=== PATIENT | female | born 1940 | race Hispanic/Latino ===

== ENCOUNTER 2017-04-18 11:03 | Inpatient (IN) | payer MEDICARE ==
[~2017-04-18] VITALS: Ht 160 cm; Wt 70.8 kg
--- NOTE | 2017-04-18 12:00 | Diagnostic Imaging Report ---
PROCEDURE: A single AP view of the chest. COMPARISON: None. INDICATIONS: POSSIBLE STROKE FINDINGS: Lines/tubes: None. Lungs: The lungs are well inflated and clear. There is no evidence of pneumonia or pulmonary edema. Pleura: There is no pleural effusion or pneumothorax. Heart and mediastinum: Mild cardiomegaly. Atherosclerotic calcifications in aorta. Mild main pulmonary artery enlargement. Bones: No acute bony abnormality. IMPRESSION: Mild cardiomegaly. No acute cardiopulmonary disease. Dictated by: Ender Elizondo M.D. on 04/18/2017 at 11:59 Electronically approved by: Ender Elizondo M.D. on 04/18/2017 at 11:59
[2017-04-18 12:16] LABS: BASOPHILS # (AUTO) 0.1 (0.0-0.1); BASOPHILS % 0.5 % (0.0-1.0); EOSINOPHILS # (AUTO) 0.1 (0.0-0.4); EOSINOPHILS % 0.5 % (0.0-6.0); HEMATOCRIT 41.4 % (34.2-44.1); HEMOGLOBIN 14.4 g/dL (12.0-16.0); LYMPHOCYTES # (AUTO) 2.9 (1.0-3.2); LYMPHOCYTES % 30.5 % (18.0-39.1); MEAN CORPUSCULAR HEMOGLOBIN 32.1 pg (28-32); MEAN CORPUSCULAR HGB CONC 34.8 g/dL (31-35); MEAN CORPUSCULAR VOLUME 92.2 fL (81-99); MONOCYTES # (AUTO) 0.5 (0.2-0.8); NEUTROPHILS # (AUTO) 5.9 (2.1-6.9); NEUTROPHILS % 63.3 % (38.7-80.0); PLATELET COUNT 314 x10e3/uL (140-360); RED BLOOD COUNT 4.49 x10e6/uL (3.6-5.1); RED CELL DISTRIBUTION WIDTH 13.8 % (11.7-14.4)
[2017-04-18 12:17] LABS: BILIRUBIN,URINE 1+ (NEGATIVE); KETONES,URINE NEGATIVE (NEGATIVE); LEUKOCYTE ESTERASE ,URINE TRACE (NEGATIVE); NITRITE,URINE NEGATIVE (NEGATIVE); URINE UROBILINOGEN 0.2 mg/dL (0.2 - 1)
[2017-04-18 12:18] LABS: CLARITY,URINE CLEAR (CLEAR); COLOR,URINE YELLOW (YELLOW); PROTEIN,URINE DIPSTICK 1+ (NEGATIVE)
[2017-04-18 12:26] LABS: BACTERIA,URINE FEW /HPF; EPITHELIAL CELLS,URINE FEW /LPF; MUCUS,URINE MANY (RARE); RBC,URINE 0-5 /HPF (0-5)
[2017-04-18 12:34] LABS: INR 1.18; PROTHROMBIN TIME 14.1 seconds (11.9-14.5)
[2017-04-18 12:35] LABS: PARTIAL THROMBOPLASTIN TIME 29.3 seconds (23.8-35.5)
[2017-04-18 12:41] LABS: ALANINE AMINOTRANSFERASE 12 IU/L (0-55); ALBUMIN 4.5 g/dL (3.5-5.0); ALKALINE PHOSPHATASE 75 IU/L (40-150); ANION GAP 15.1 mmol/L (8-16); BLOOD UREA NITROGEN 19 mg/dL (7-26); BUN/CREATININE RATIO 23 (6-25); CALCIUM 9.6 mg/dL (8.4-10.2); CARBON DIOXIDE 26 mmol/L (22-29); CHLORIDE 104 mmol/L (98-107); CREATINE KINASE 97 IU/L (29-168); CREATININE, SERUM 0.83 mg/dL (0.57-1.11); EST GLOMERULAR FILTRATION RATE > 60 ML/MIN (60-); GLUCOSE 101 mg/dL (74-118); POTASSIUM 4.1 mmol/L (3.5-5.1); SODIUM 141 mmol/L (136-145)
--- NOTE | 2017-04-18 12:54 | Diagnostic Imaging Report ---
Exam: Head CT without contrast History: Headache Comparison studies: None Technique: Axial images were obtained from the skull base to the vertex. Coronal and sagittal images reconstructed from the axial data. Intravenous contrast: None Findings: Scalp: No abnormalities. Bones: No fractures, blastic or lytic lesions. Brain sulci: Right lateral parietal and occipital sulci are effaced (see below. Remain sulci are mild prominent. Ventricles: The posterior right lateral ventricle is partially effaced. Mild to been stored dilatation remaining ventricles. No hydrocephalus. Extra-axial spaces: No masses, no fluid collection. Parenchyma: Wedge-shaped hypodensity compatible with recent, moderate size infarct centered in the right inferior parietal lobule extends anteriorly to the posterior right insula and right superior temporal lobe and posteriorly to the right lateral occipital lobe in the distal right MCA territory. Infarct extends to the right MCA and [employer] DEVELOPER cortical border zone. There is no abby hemorrhagic conversion at this time. There are a few linear hyperdense vessels within the infarct bed which may possibly reflect small thrombosed vessels within the distal right MCA territory. There is a small chronic lacunar infarct in the left anterolateral putamen. Scattered discrete and ill-defined ill-defined confluent hypodensities in the supratentorial white matter are nonspecific but most compatible with chronic small vessel ischemic changes. Sellar/suprasellar region: No abnormalities. Craniocervical junction: Patent foramen magnum. No Chiari one malformation. Incidental findings: Atherosclerotic calcifications in the carotid siphons, right intradural vertebral artery and proximal left A2 CASSANDRA segment. IMPRESSION: Recent (acute to early subacute), moderate size, nonhemorrhagic vascular insult in the distal right MCA territory extends to the right MCA-[employer] WE[employer] DEVELOPER cortical border zone with local mass effect without midline shift, herniation or hydrocephalus. Chronic findings: 1. Mild generalized volume loss. 2. Moderate chronic microvascular ischemic changes with small chronic left putaminal lacunar infarct. Findings discussed with Dr. Best at 12:46 PM on 04/18/2017. Signed by: Dr. Charles Martin M.D. on 04/18/2017 12:50 PM
[2017-04-18] MEDS ORDERED: NIFEDIPINE ER60 MG PO (13:00)
[2017-04-18] MEDS ORDERED: CHLORTHALIDONE25 MG PO (13:00)
[2017-04-18] MEDS ORDERED: WARFARIN SODIUM4 MG PO (13:00)
[2017-04-18] MEDS ORDERED: METOPROLOL SUCC50 MG PO (13:00)
[2017-04-18] MEDS ORDERED: ASPIRIN 325 MG TAB PO ONE (13:45)
[2017-04-18] MEDS ORDERED: ENOXAPARIN SOD INJ 60 MG/0.6 ML SYR SC SCH (13:45)
--- OUTSIDE RECORDS SUMMARY | 2017-04-18 13:48 | XMS REPORT ---
Author [facility] Address Unknown Phone Unavailable Care Team Providers Care Property Maintenance Supervisor Name Role Phone FLORES CARVALHO Unavailable Unavailable Problems This patient has no known problems. Allergies, Adverse Reactions, Alerts This patient has no known allergies or adverse reactions. Medications This patient has no known medications. Results Test Description Test Time Test Comments Text Results Atomic Results Result Comments CHEST SINGLE (PORTABLE) [place] [address] Patient Name: GUERO ATKINSON MR #: [id number] : 1940 Age/Sex: 76/F Req #: [id number] Adm Physician: Ordered by: FLORES CARVALHO MD Report #: [id number] Location: ER Room/Bed: Procedure: [id number] DX/CHEST SINGLE (PORTABLE) Exam Date: 04/18/17 Exam Time: 1145 REPORT STATUS: Signed PROCEDURE: A single AP view of the chest. COMPARISON: None. INDICATIONS: POSSIBLE STROKE FINDINGS: Lines/tubes: None. Lungs: The lungs are well inflated and clear. There is no evidence of pneumonia or pulmonary edema. Pleura: There is no pleural effusion or pneumothorax. Heart and mediastinum: Mild cardiomegaly. Atherosclerotic calcifications in aorta. Mild main pulmonary artery enlargement. Bones: No acute bony abnormality. IMPRESSION: Mild cardiomegaly. No acute cardiopulmonary disease. Dictated by: Naida Elizondo M.D. on 04/18/2017 at 11: 59 Electronically approved by: Naida Elizondo M.D. on 04/18/2017 at 11:59 Dictated By: NAIDA ELIZONDO MD [id number] COPY TO: FLORES CARVALHO MD CT BRAIN WO [place] [address] Patient Name: GUERO ATKINSON MR #: [id number] : 1940 Age/Sex: 76/F Req #: [id number] Adm Physician: Ordered by: FLORES CARVALHO MD Report #: [id number] Location: ER Room/Bed: Procedure: [id number] CT/CT BRAIN WO Exam Date: 04/18/17 Exam Time: 1215 REPORT STATUS: Signed Exam: Head CT without contrast History: Headache Comparison studies: None Technique: Axial images were obtained from the skull base to the vertex. Coronal and sagittal images reconstructed from the axial data. Intravenous contrast: None Findings: Scalp: No abnormalities. Bones: No fractures, blastic or lytic lesions. Brain sulci: Right lateral parietal and occipital sulci are effaced (see below. Remain sulci are mild prominent. Ventricles: The posterior right lateral ventricle is partially effaced. Mild to been stored dilatation remaining ventricles. No hydrocephalus. Extra-axial spaces: No masses, no fluid collection. Parenchyma: Wedge-shaped hypodensity compatible with recent, moderate size infarct centered in the right inferior parietal lobule extends anteriorly to the posterior right insula and right superior temporal lobe and posteriorly to the right lateral occipital lobe in the distal right MCA territory. Infarct extends to the right MCA and OPS MANAGER cortical border zone. There is no abby hemorrhagic conversion at this time. There are a few linear hyperdense vessels within the infarct bed which may possibly reflect small thrombosed vessels within the distal right MCA territory. There is a small chronic lacunar infarct in the left anterolateral putamen. Scattered discrete and ill-defined ill-defined confluent hypodensities in the supratentorial white matter are nonspecific but most compatible with chronic small vessel ischemic changes. Sellar/ suprasellar region: No abnormalities. Craniocervical junction: Patent foramen magnum. No Chiari one malformation. Incidental findings: Atherosclerotic calcifications in the carotid siphons, right intradural vertebral artery and proximal left A2 CASSANDRA segment. IMPRESSION: Recent (acute to early subacute), moderate size, nonhemorrhagic vascular insult in the distal right MCA territory extends to the right MCA-OPS MANAGER cortical border zone with local mass effect without midline shift, herniation or hydrocephalus. Chronic findings: 1. Mild generalized volume loss. 2. Moderate chronic microvascular ischemic changes with small chronic left putaminal lacunar infarct. Findings discussed with Dr. Best at 12: 46 PM on 04/18/2017. Signed by: Dr. Shakir Martin M.D. on 04/18/2017 12:50 PM Dictated By: SHAKIR MARTIN MD 1250 Transcribed By: SASHA on 04/18/17 1250 COPY TO: FLORES CARVALHO MD
[2017-04-18 18:53] VITALS: BP 127/64
[2017-04-18 19:30] VITALS: BP 134/84
[2017-04-18] MEDS: ENOXAPARIN SOD INJ 60 MG/0.6 ML SYR SC SCH (20:41)
[2017-04-19] VITALS (7 sets, daily range): BP systolic 127–149; BP diastolic 67–99
[2017-04-19] MEDS: FAMOTIDINE 20 MG TAB PO SCH ×2 (10:00→16:56)
[2017-04-19] MEDS: ASPIRIN 325 MG TAB EC PO SCH (10:01)
[2017-04-19] MEDS: ENOXAPARIN SOD INJ 60 MG/0.6 ML SYR SC SCH (10:04)
[2017-04-19] MEDS: METOPROLOL SUCCINATE 50 MG TAB XL PO SCH (10:05)
[2017-04-19] MEDS ORDERED: WARFARIN SOD 5 MG TAB PO SCH (17:00)
[2017-04-19] MEDS: RIVAROXABAN 20 MG TABLET PO SCH ×2 (18:00→18:39)
--- NOTE | 2017-04-19 19:05 | History and Physical ---
PRIMARY CARE PROVIDER: Dr. Amin ____, who does not come to this hospital. CHIEF COMPLAINT: Confusion and transient left-sided weakness. HISTORY OF PRESENT ILLNESS: Ms. Gerber is a 76-year-old lady who yesterday in the morning had some transient left-sided weakness where she was leaning towards the left side, having difficulty walking. This cleared up after an hour or so but the patient became a little confused. She was putting her clothes on backwards and so was brought to the ER for evaluation. In the ED, a CT scan showed what looked like an acute or subacute right middle cerebral artery stroke. REVIEW OF SYSTEMS: She denies fever, chills or weight loss. Denies sinus congestion or sore throat. She denies chest pain or palpitations. She denies shortness of breath, wheezing or cough. She denies abdominal pain, nausea, vomiting, diarrhea or melena. She denies dysuria or flank pain. Denies rash or pruritus. She denies joint pain or swelling. She denies headache or vertigo. She had some transient left-sided weakness. She denies loss of consciousness. She is a little confused. She denies depression, agitation, homicidal or suicidal ideation. , PAST MEDICAL HISTORY: Significant for longstanding hypertension and coronary artery disease. She has had a coronary stent. She is not clear on the details. It was many years ago. She had chronic atrial fibrillation for several years. She had a previous stroke with right-sided weakness that resolved. HOME MEDICATIONS: Metoprolol ER 50 mg daily. Nifedipine ER 60 mg twice daily. Chlorthalidone 12.5 mg daily. Coumadin 4.5 mg daily. She has a history of cholecystectomy many years ago. She has had bilateral lumpectomy and radiation on both breasts back in 2000. She had a coronary stent as noted above. ALLERGIES: NO KNOWN DRUG ALLERGIES. FAMILY HISTORY: Significant for hypertension. SOCIAL HISTORY: The patient is . She is bilingual. She does speak fairly good Mongolian. She does not smoke, drink or use illegal drugs. She is generally independently functioning. PHYSICAL EXAM: PSYCHIATRIC: She is alert and oriented times 3 with normal mood and affect. CONSTITUTIONAL: She has a normal body habitus. Is in no acute distress. VITAL SIGNS: Blood pressure initially 140/65, currently 137/67, heart rate initially 105 and currently 85 and irregular. Respiratory rate 16 and unlabored. O2 saturation 96% on room air. Temperature initially 97.3, T max overnight 99.9, currently 99.2. HEENT: Head is atraumatic. Eyes are anicteric with clear conjunctivae. Ears and nares are without erythema or discharge. Oropharynx is clear. NECK: Is supple with no mass or thyromegaly. LYMPHATIC SYSTEM: She has no palpable cervical, axillary or inguinal adenopathy. CARDIOVASCULAR: Heart has an irregular, irregular rhythm without murmur or extra heart sounds. She has no carotid bruit. She has no peripheral edema. Has palpable dorsal pedal pulses. RESPIRATORY: Clear to auscultation and percussion with normal respiratory effort. GASTROINTESTINAL: Abdomen is soft without organomegaly, masses or tenderness. Normal bowel sounds present. CUTANEOUS: Her skin is warm and dry to touch with no rash or skin breakdown. MUSCULOSKELETAL: Joints are normal alignment without erythema or swelling. She has no calf tenderness. NEUROLOGIC: Exam is nonfocal. Patient has symmetric strength and normal reflexes. She appears to be alert and oriented times 3, essentially fairly close to her baseline according to her family. Nonfocal with no motor or sensory deficits. DIAGNOSTIC STUDIES: Chest x-ray shows mild cardiomegaly, otherwise no acute disease. CT scan of brain shows what appears to be an acute or subacute recent, in any case right middle cerebral artery stroke, distal right middle cerebral artery distribution, but fairly large area effected. She also has some chronic changes, some generalized volume loss, some microvascular changes in the deep white matter and a lacunar infarct in the left putamen. Her UA has 6 to 10 white cells. Cultures pending. Troponin 0.001. Her chemistry shows normal electrolytes. CO2 26. Creatinine 0.83. BUN 19. Glucose 101. Calcium 9.6. Transaminases, bilirubin and alkaline phos are normal. CBC shows a white count of 9.35 with a normal differential. Hemoglobin 14.4, hematocrit 41.4 and platelet count 314,000. Coags are normal with a pro time of 14.1 and INR of 1.18. IMPRESSION AND PLAN 1. 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 Patient has been given aspirin, started on aspirin daily and will start on Lovenox, weight-based, 60 mg subcutaneous q.12 hours. Neurology has been consulted and PT and OT have been consulted for evaluation. 2. Hypertension complicated by coronary artery disease. Will continue the metoprolol. The patient's blood pressure 137 systolic. Will hold her Procardia for now and let blood pressure run a little bit high in view of the recent stroke. We may need to adjust her blood pressure medications prior to discharge, like perhaps change the Procardia to Norvasc 10 mg daily. I think the Procardia is too strong, but for right now, will let her blood pressure run at least with the systolic pressure 130 or above. 3. Chronic atrial fibrillation. Her rate is controlled. Will continue her metoprolol. Will stop the warfarin and change to Xarelto 20 mg daily for better compliance. Once the Xarelto has been started, will stop the Lovenox. 4. For prophylaxis the patient is getting DVT prophylaxis with subcutaneous Lovenox transitioning to Xarelto for stroke prophylaxis and Pepcid for GI prophylaxis. Job#: [id number]
[2017-04-20] VITALS (7 sets, daily range): BP systolic 144–178; BP diastolic 73–88
[2017-04-20 06:42] LABS: BASOPHILS # (AUTO) 0.1 (0.0-0.1); BASOPHILS % 0.6 % (0.0-1.0); EOSINOPHILS # (AUTO) 0.1 (0.0-0.4); EOSINOPHILS % 1.2 % (0.0-6.0); HEMATOCRIT 39.6 % (34.2-44.1); HEMOGLOBIN 13.6 g/dL (12.0-16.0); LYMPHOCYTES # (AUTO) 2.8 (1.0-3.2); LYMPHOCYTES % 31.1 % (18.0-39.1); MEAN CORPUSCULAR HEMOGLOBIN 31.8 pg (28-32); MEAN CORPUSCULAR HGB CONC 34.3 g/dL (31-35); MEAN CORPUSCULAR VOLUME 92.5 fL (81-99); MONOCYTES # (AUTO) 0.7 (0.2-0.8); MONOCYTES % 7.2 % (4.4-11.3); NEUTROPHILS # (AUTO) 5.4 (2.1-6.9); NEUTROPHILS % 59.7 % (38.7-80.0); PLATELET COUNT 262 x10e3/uL (140-360); RED BLOOD COUNT 4.28 x10e6/uL (3.6-5.1); RED CELL DISTRIBUTION WIDTH 13.3 % (11.7-14.4)
[2017-04-20 06:55] LABS: ANION GAP 9.5 mmol/L (8-16); BLOOD UREA NITROGEN 13 mg/dL (7-26); BUN/CREATININE RATIO 16 (6-25); CALCIUM 8.9 mg/dL (8.4-10.2); CARBON DIOXIDE 28 mmol/L (22-29); CHLORIDE 104 mmol/L (98-107); CREATININE, SERUM 0.83 mg/dL (0.57-1.11); EST GLOMERULAR FILTRATION RATE > 60 ML/MIN (60-); GLUCOSE 105 mg/dL (74-118); MAGNESIUM 1.8 MG/DL (1.3-2.1); POTASSIUM 3.5 mmol/L (3.5-5.1); SODIUM 138 mmol/L (136-145)
[2017-04-20 07:23] LABS: THYROID STIMULATING HORMONE 4.508 uIU/mL (0.350-4.940)
[2017-04-20 07:33] LABS: CHOL/HDL RATIO 3.3 (3.0-3.6)
[2017-04-20] MEDS: FAMOTIDINE 20 MG TAB PO SCH ×2 (08:47→17:07)
[2017-04-20] MEDS: ASPIRIN 325 MG TAB EC PO SCH (08:47)
[2017-04-20] MEDS: METOPROLOL SUCCINATE 50 MG TAB XL PO SCH (08:47)
[2017-04-20] MEDS ORDERED: RIVAROXABAN 20 MG TABLET PO SCH (09:00)
--- NOTE | 2017-04-20 15:50 | Consultation ---
DATE OF CONSULTATION: April 18, 2017 at 4:30 p.m. NEUROLOGICAL CONSULTATION This 76-year-old female was brought to the hospital because of a 2-day history she was complaining of some vision problems and weakness of the left arm and left leg. There was no headache, no dizziness, no speech or swallowing difficulty. PAST MEDICAL HISTORY: Hypertension, atrial fibrillation, chronic coronary artery disease. She has had a stent. 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 MEDICATIONS: Metoprolol 50 mg daily, nifedipine, warfarin. Recent medications have been reviewed. INR today on the day of admission 1.18, which is on the low side. REVIEW OF SYSTEMS: All 12 steps negative, except as described above. PHYSICAL EXAMINATION VITAL SIGNS: Blood pressure 140/70, pulse 72, afebrile. LUNGS: Clear to auscultation. HEART: Regular sinus rhythm, no murmur. ABDOMEN: Soft, nontender with no organomegaly. MUSCULOSKELETAL: Lower extremities with no edema, no cyanosis, no clubbing. NEUROLOGIC: At the time of this examination in the emergency room, she is sitting comfortably, eating. She is alert. She is oriented x3. Speech is clear with no dysarthria or dysphasia. Cranial nerves: Pupils are both equal and reactive. Extraocular movements were full. Visual jean, questionable left homonymous hemianopsia. No dysphasia. No facial weakness. Tongue protrudes in the midline. Motor power: The patient is able to elevate arms and legs against gravity, approximately 80 degrees without difficulty. Flexion and extension of the knees 5/5. Flexion and extension of the ankles 5/5. 5/5. Deep tendon reflexes: Triceps, biceps, radialis 1+. Knee jerk 1+. absent bilaterally. Plantar stimulation down bilaterally. HEAD: Normocephalic. NECK: Supple. Carotid pulsations were present bilaterally. There were no bruits. LABORATORY DATA: WBC 3,900 with hemoglobin 13.3, hematocrit 39.6, platelets 262,000. Comprehensive metabolic panel: Sodium, potassium and chloride all normal. BUN 19, creatinine 0.83. Estimated GFR greater than 60. Triglycerides 85, chloride 177. Urinalysis with WBCs 6-10. CT scan of the brain showed acute moderate sized non-hemorrhagic ischemic stroke in the right MCA, extending to the posterior cerebral artery with minimal mass affect. IMPRESSION 1. Subacute right middle cerebral infarction. 2. Atrial fibrillation. 3. Hypertension. 4. Right homonymous hemianopsia, partial. RECOMMENDATIONS: I have reviewed the CAT scan of the brain and will get speech therapy and physical therapy, ambulation, and will do a carotid Doppler and discuss with the attending physician. The family has been explained in detail. Job#: [id number]
[2017-04-20] MEDS: RIVAROXABAN 20 MG TABLET PO SCH (17:07)
[2017-04-21 00:45] VITALS: BP 148/79
[2017-04-21 05:05] VITALS: BP 144/81
[2017-04-21 08:16] LABS: BASOPHILS # (AUTO) 0.1 (0.0-0.1); BASOPHILS % 0.7 % (0.0-1.0); EOSINOPHILS # (AUTO) 0.2 (0.0-0.4); EOSINOPHILS % 1.8 % (0.0-6.0); HEMOGLOBIN 15.2 g/dL (12.0-16.0); LYMPHOCYTES # (AUTO) 2.8 (1.0-3.2); LYMPHOCYTES % 33.4 % (18.0-39.1); MEAN CORPUSCULAR HEMOGLOBIN 31.6 pg (28-32); MEAN CORPUSCULAR HGB CONC 34.5 g/dL (31-35); MEAN CORPUSCULAR VOLUME 91.5 fL (81-99); MONOCYTES # (AUTO) 0.5 (0.2-0.8); MONOCYTES % 6.2 % (4.4-11.3); NEUTROPHILS # (AUTO) 4.8 (2.1-6.9); NEUTROPHILS % 57.5 % (38.7-80.0); PLATELET COUNT 269 x10e3/uL (140-360); RED BLOOD COUNT 4.81 x10e6/uL (3.6-5.1); RED CELL DISTRIBUTION WIDTH 13.2 % (11.7-14.4)
[2017-04-21 08:32] LABS: ANION GAP 12.7 mmol/L (8-16); BLOOD UREA NITROGEN 15 mg/dL (7-26); BUN/CREATININE RATIO 17 (6-25); CALCIUM 9.9 mg/dL (8.4-10.2); CARBON DIOXIDE 24 mmol/L (22-29); CHLORIDE 104 mmol/L (98-107); CREATININE, SERUM 0.88 mg/dL (0.57-1.11); EST GLOMERULAR FILTRATION RATE > 60 ML/MIN (60-); GLUCOSE 102 mg/dL (74-118); POTASSIUM 3.7 mmol/L (3.5-5.1); SODIUM 137 mmol/L (136-145)
[2017-04-21 08:55] VITALS: BP 148/94
[2017-04-21] MEDS: FAMOTIDINE 20 MG TAB PO SCH (09:12)
[2017-04-21] MEDS: ASPIRIN 325 MG TAB EC PO SCH (09:12)
[2017-04-21] MEDS: METOPROLOL SUCCINATE 50 MG TAB XL PO SCH (09:13)
[2017-04-21] MEDS ORDERED: XARELTO10 MG PO (09:14)
[2017-04-21] MEDS ORDERED: AMLODIPINE BESY10 MG PO (09:14)
--- NOTE | 2017-04-22 01:31 | Discharge Summary ---
ADMISSION DIAGNOSES 1. 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 2. Hypertension complicated by coronary artery disease. 3. Chronic atrial fibrillation. DISCHARGE DIAGNOSES 1. 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 2. Hypertension complicated by coronary artery disease. 3. Chronic atrial fibrillation. The patient has a history of hypertension, CAD with stent, chronic AFib for several years, previous stroke with right-sided weakness that resolved. HOSPITAL COURSE: A 76-year-old female presented with transient weakness where she was leaning towards the left side and having difficulty walking. This cleared up about an hour or so later, but then the patient became confused. She was putting on her clothes backwards. Brought to the ER for evaluation. On admission, the patient had an EKG which showed AFib with RVR. She had a chest x-ray, which showed mild cardiomegaly. No acute cardiopulmonary disease. CT of the brain that showed what appears to be an acute or subacute right middle cerebral artery stroke, distal right middle cerebral artery distribution, but fairly large area affected. The patient was given aspirin and started on aspirin daily, and started on Lovenox weight-based. Neurology was consulted, and PT and OT were consulted for . For the hypertension, the patient was continued on , but her Procardia was held to let her blood pressure run a little bit high in view of the recent stroke. At the time of discharge, was given Norvasc instead of Procardia. She was also on Coumadin at home, but at discharge it was changed to Xarelto for better compliance. The patient was evaluated by PT and was able to complete ADLs by herself. She worked well with speech therapy. No problems swallowing. Carotid Doppler was done that showed evidence of carotid disease without carotid stenosis bilaterally. Echo was also done that showed an EF of 55% to 60%. The patient is okay to discharge home on current hospital medications, including Xarelto, aspirin, metoprolol, Norvasc. The patient lives with family members. She does have a walker at home, although she does not use it. In the hospital, she did not need any DME. She will return home with family, and follow up with neurology in 1-2 weeks and PCP in 1-2 weeks. DICTATED BY ANNE DE PAZ, EDWAR GAIL TORRES MD Job#: [id number] [place]
== END 2017-04-21 11:02 | disposition home health service (06) | DRG 65 ==
LOC: ER 11:03 → ERHOLD 13:46 → IMCU 17:57 → MED/SURG 04-19 23:01
PROVIDERS: ADMIT Internal Medicine; ATTEND Internal Medicine
DX: I63.511 Cerebral infarction due to unspecified occlusion or stenosis of right middle cerebral artery (principal); I69.351 Hemiplegia and hemiparesis following cerebral infarction affecting right dominant side; I11.9 Hypertensive heart disease without heart failure; I25.10 Atherosclerotic heart disease of native coronary artery without angina pectoris; I48.2 Chronic atrial fibrillation; Z79.01 Long term (current) use of anticoagulants; Z95.5 Presence of coronary angioplasty implant and graft; H53.461 Homonymous bilateral field defects, right side
CPT/HCPCS: 36415; 70450; 71045; 80048; 80053; 80061; 81001; 82550; 82553; 83735; 83880; 84439; 84443; 84484; 85025; 85610; 85730; 87086; 93005; 93306; 93880; 99284; J1650